=== PATIENT | female | born 1945 | race Caucasian/White ===

== ENCOUNTER 2020-03-02 11:46 | Emergency (ER) | payer MEDICARE ==
[~2020-03-02] VITALS: Ht 152.4 cm; Wt 38.2 kg
[2020-03-02 11:58] VITALS: BP 178/70
[2020-03-02] MEDS ORDERED: CYCL-1 PO (13:56)
== END 2020-03-02 14:27 | disposition home or self-care (01) ==
LOC: ER 11:48
DX: S39.011A Strain of muscle, fascia and tendon of abdomen, initial encounter (principal); X58.XXXA Exposure to other specified factors, initial encounter; Y93.89 Activity, other specified; Y92.89 Other specified places as the place of occurrence of the external cause; Y99.8 Other external cause status
CPT/HCPCS: 73502; 99283

== ENCOUNTER 2020-03-17 12:39 | Emergency (ER) | payer OTHER ==
[~2020-03-17] VITALS: Ht 154.9 cm; Wt 38.6 kg
[~2020-03-17 12:39] MED LIST: CYCL-1 PO
--- NOTE | 2020-03-17 13:31 | NUR ---
patient on bed awake.awaiting to be seen by ED provider.
[2020-03-17] MEDS ORDERED: HYDROcodone/acetaminophen 10/325mg tab PO ONE (14:40)
[2020-03-17 15:49] LABS: BASOPHILS % (AUTO) 0.4 % (0-1); EOSINOPHILS # (AUTO) 0.1 X10'3 (0-0.9); EOSINOPHILS % (AUTO) 1.1 % (0-6); HEMATOCRIT 40.2 % (35.0-45.0); HEMOGLOBIN 13.3 g/dl (12.0-16.0); LYMPHOCYTES # (AUTO) 1.5 X10'3 (1.1-4.8); LYMPHOCYTES % (AUTO) 14.5 % (21-51); MEAN CORPUSCULAR HEMOGLOBIN 30.6 PG (27.0-31.0); MEAN CORPUSCULAR HGB CONC 33.1 g/dL (33.0-36.5); MEAN CORPUSCULAR VOLUME 92.4 FL (78-98); MEAN PLATELET VOLUME 9.4 FL (7.4-10.4); MONOCYTES # (AUTO) 0.8 X10'3 (0-0.9); MONOCYTES % (AUTO) 7.2 % (2-12); NEUTROPHILS % (AUTO) 76.8 % (42-75); PLATELET COUNT 230 X10'3 (140-440); RED BLOOD COUNT 4.36 X10'6 (4.20-5.60); RED CELL DISTRIBUTION WIDTH 13.8 % (11.5-14.5); WHITE BLOOD COUNT 10.4 X10'3 (4.5-11.0)
[2020-03-17 16:05] LABS: ALANINE AMINOTRANSFERASE 27 U/L (12-78); ALBUMIN 3.7 G/DL (3.4-5.0); ALBUMIN/GLOBULIN RATIO 1.1 (1.1-1.5); ALKALINE PHOSPHATASE 101 IU/L (46-116); ANION GAP 9 (8-16); ASPARTATE AMINO TRANSFERASE 16 U/L (10-37); BILIRUBIN,TOTAL 0.7 MG/DL (0.1-1.0); BLOOD UREA NITROGEN 9 MG/DL (7-18); BUN/CREATININE RATIO 14.3 (6.6-38.0); CHLORIDE 104 MMOL/L (99-107); CREATININE 0.63 MG/DL (0.40-0.90); GLUCOSE 89 MG/DL (70-104); POTASSIUM 4.1 MMOL/L (3.5-5.1); SODIUM 143 MMOL/L (135-145); TOTAL CARBON DIOXIDE 30.5 MMOL/L (24-32); TOTAL PROTEIN 7.1 G/DL (6.4-8.2); eGFR > 90 ML/MIN
--- NOTE | 2020-03-17 16:13 | NUR ---
awaiting for psychiatry instructor to take patient to ct.
--- NOTE | 2020-03-17 16:23 | NUR ---
PATIENT ON LSO BRACE.
[2020-03-17] MEDS ORDERED: HYDR-4353 PO (16:39)
--- NOTE | 2020-03-17 16:45 | NUR ---
NO PO CONTRAST PER OPPEZZO.
--- NOTE | 2020-03-17 16:46 | NUR ---
CALLED CT SPOKE TO ANDRIA.
[2020-03-17] MEDS ORDERED: iohexol 300mg/ml 100ml inj. ONE (16:53)
--- NOTE | 2020-03-17 17:06 | NUR ---
PT TO CT.
[2020-03-17 17:53] VITALS: BP 115/98
== END 2020-03-17 17:54 | disposition home or self-care (01) ==
LOC: ER 12:40
DX: S70.11XA Contusion of right thigh, initial encounter (principal); M48.56XA Collapsed vertebra, not elsewhere classified, lumbar region, initial encounter for fracture; R10.31 Right lower quadrant pain; M25.551 Pain in right hip; Z79.899 Other long term (current) drug therapy; X58.XXXA Exposure to other specified factors, initial encounter; Y93.89 Activity, other specified; Y92.89 Other specified places as the place of occurrence of the external cause; Y99.8 Other external cause status
CPT/HCPCS: 36415; 72131; 72192; 72193; 80053; 85025; 99285; Q9967